=== PATIENT | female | born 1990 | race African-American/Black ===

== ENCOUNTER 2019-10-25 02:56 | Emergency (ER) | payer SELFPAY ==
[~2019-10-25] VITALS: Ht 165.1 cm; Wt 91.8 kg
[2019-10-25 02:56] VITALS: BP 121/74
--- NOTE | 2019-10-25 03:38 | PHYS DOC ---
Past History Past Medical History: No Pertinent History Past Surgical History: , Tubal ligation Smoking: Cigarettes Alcohol Use: None Drug Use: None General Adult EDM: Chief Complaint: VAGINAL BLEEDING HPI: HPI: 29-year-old female presents with report of prolonged vaginal bleeding. Reports has had vaginal bleeding x2 weeks. Patient denies . Reports history of tubal ligation. Patient is a G6, P5, AB 1-elective. Reports that the prolonged bleeding is "bothering her ". Patient reports she typically follows at [facility]. Denies any lightheadedness or dizziness. Denies fever or chills. Denies use of blood thinners. Denies vaginal discharge or concern for STD. Review of Systems: Review of Systems: Constitutional: Denies fever or chills Eyes: Denies redness or eye pain HENT: Denies nasal congestion or sore throat Respiratory: Denies cough or shortness of breath Cardiovascular: Denies chest pain or palpitations GI: Denies abdominal pain, nausea, or vomiting /[facility]: Denies dysuria or hematuria; reports metrorrhagia Musculoskeletal: Denies back pain or joint pain Integument: Denies rash or skin lesions Neurologic: Denies headache, focal weakness or sensory changes Complete systems were reviewed and found to be within normal limits, except as documented in this note. Allergies: Allergies: Allergies Coded Allergies Type Severity Reaction Last Updated Verified No Known Allergies Allergy Unknown 10/25/19 Yes Physical Exam: PE: Constitutional: Well developed, well nourished, no acute distress, non-toxic appearance HENT: Normocephalic, atraumatic Eyes: Conjunctiva normal, no discharge Neck: Normal range of motion, supple Lungs & Thorax: No respiratory distress, equal chest rise and fall Abdomen: Soft, no tenderness, no guarding/rebound tenderness/distention Skin: Warm, dry, no erythema, no rash Back: No tenderness, no CVA tenderness Extremities: No tenderness, ROM intact, no edema Neurologic: Alert and oriented X 3, no focal deficits noted Psychologic: Affect normal, judgment normal EKG: EKG: [] Radiology/Procedures: Radiology/Procedures: [] Course & Med Decision Making: Course & Med Decision Making Patient presents with report of metrorrhagia x2 weeks. Denies use of blood thinners. Denies dizziness or lightheadedness. Denies fever or chills. Denies with history of tubal ligation. Abdomen non-peritoneal. Patient instructed that for metrorrhagia that we typically will get CBC and pelvic ultrasound. Patient is a self-pay patient and per [employer] corporate directive, patient deemed to be medically screened and requiring $150 co-pay to continue further evaluation and work-up. Patient elected to leave against medical advice. Patient [facility] or [facility]. A copy of family practice resources provided. Vikram Disclaimer: Vikram Disclaimer: This electronic medical record was generated, in whole or in part, using a voice recognition dictation system. Departure Departure: Impression: Primary Impression: Metrorrhagia Disposition: AGAINST MEDICAL ADVICE Condition: GUARDED Patient Instructions: Discharge Against Medical Advice, Metrorrhagia, [id number] Justification of Admission: Justification of Admission: Justification of Admission Dx: N/A CARMINA CHAPA DO Oct 25, 2019 03:38
== END 2019-10-25 03:43 | disposition left against medical advice (07) ==
LOC: ER 02:56
DX: N92.1 Excessive and frequent menstruation with irregular cycle (principal); F17.210 Nicotine dependence, cigarettes, uncomplicated; Z98.890 Other specified postprocedural states; Z98.51 Tubal ligation status
CPT/HCPCS: 99281